=== PATIENT | female | born 1995 | race Caucasian/White ===

== ENCOUNTER 2024-08-14 19:53 | Emergency (ER) | payer OTHER ==
[~2024-08-14] VITALS: Ht 170.2 cm; Wt 81.8 kg
[2024-08-14 20:10] VITALS: BP 145/92; PULSE 120; RESP 22; TEMP 98.9; O2SAT 98
[2024-08-15 00:55] LABS: BASOPHILS % (AUTO) 0.5 % (0.0-2.0); EOSINOPHILS % (AUTO) 0.5 % (1.0-6.0); HEMATOCRIT 42.8 % (36-46); HEMOGLOBIN 14.2 g/dL (12.0-16.0); LYMPHOCYTES # (AUTO) 3.3 K/uL (1.0-4.8); LYMPHOCYTES % (AUTO) 31.9 % (22.0-44.0); MEAN CORPUSCULAR HEMOGLOBIN 28.8 pg (26.0-34.0); MEAN CORPUSCULAR HGB CONC 33.2 G/dL (31.0-37.0); MEAN CORPUSCULAR VOLUME 87 fL (80-100); MONOCYTES # (AUTO) 0.7 K/uL (0.1-1.0); MONOCYTES % (AUTO) 6.5 % (2.0-9.0); NEUTROPHILS # (AUTO) 6.2 K/uL (1.8-7.7); NEUTROPHILS % (AUTO) 60.6 % (40.0-70.0); PLATELET COUNT (AUTO) 293 K/uL (150-450); RED BLOOD CELL COUNT(AUTO) 4.93 MIL/uL (4.00-5.20); RED CELL DISTRIBUTION WIDTH 13.1 % (11.5-14.5); WHITE BLOOD COUNT (AUTO) 10.2 K/uL (4.5-11.0)
[2024-08-15 01:00] LABS: ANION GAP 8 mmol/L (8-16); CALCIUM, TOTAL 9.2 mg/dL (8.8-10.5); CARBON DIOXIDE 27 mmol/L (22-29); CHLORIDE 102 mmol/L (98-107); CREATININE 0.83 mg/dL (0.60-1.30); GLOMERULAR FILTR. RATE CALC > 60 mL/min (>60); GLUCOSE,RANDOM 97 mg/dL (70-110); POTASSIUM 3.7 mmol/L (3.5-5.1); SODIUM SERUM 137 mmol/L (136-145); UREA NITROGEN, BLOOD 12 mg/dL (7-18)
== END 2024-08-15 02:04 | disposition home or self-care (01) ==
LOC: EMS 19:53
DX: T44.3X1A Poisoning by other parasympatholytics [anticholinergics and antimuscarinics] and spasmolytics, accidental (unintentional), initial encounter (principal); R19.7 Diarrhea, unspecified; Y99.8 Other external cause status
CPT/HCPCS: 80048; 84703; 85025; 99283